=== PATIENT | male | born 1960 | race Caucasian/White ===

== ENCOUNTER → 2016-10-27 | Outpatient (CLI) | payer MEDICAID ==
[2016-10-27 07:09] LABS: ALT 34 U/L (21-72); AST 30 U/L (17-59); Alkaline Phosphatase 64 U/L (38-126); Anion Gap 10 mmol/L; Blood Urea Nitrogen 13 mg/dL (9-20); Calcium 9.5 mg/dL (8.4-10.2); Carbon Dioxide 27 mmol/L (22-30); Chloride 105 mmol/L (98-107); Cholesterol 174 mg/dL (<200); Glucose 101 mg/dL (74-99); HDL Cholesterol 46 mg/dL (40-60); Non-African American GFR(MDRD) >60 (>60 ml/min/1.73 sqM); Potassium 4.8 mmol/L (3.5-5.1); Sodium 142 mmol/L (137-145); Total Bilirubin 0.9 mg/dL (0.2-1.3); Total Protein 7.8 g/dL (6.3-8.2); Triglycerides 86 mg/dL (<150)
[2016-10-27 07:19] LABS: Basophils # (A) 0.1 k/uL (0-0.2); Basophils % (A) 1 %; CH 31.1; CHCM 34.5; Eosinophils # (A) 0.1 k/uL (0-0.7); Eosinophils % (A) 1 %; HCT 47.5 % (39.0-53.0); HDW 2.53; HGB 15.7 gm/dL (13.0-17.5); Luc # (Auto) 0.16; Luc % (Auto) 3; Lymphocytes # (A) 2.6 k/uL (1.0-4.8); Lymphocytes % (A) 41 %; MCH 29.8 pg (25.0-35.0); MCV 90.4 fL (80.0-100.0); Mean Platelet Volume 7.1; Monocytes # (A) 0.4 k/uL (0-1.0); Monocytes % (A) 6 %; Neutrophils % (A) 48 %; RBC 5.26 m/uL (4.30-5.90); RDW 12.5 % (11.5-15.5); WBC 6.3 k/uL (3.8-10.6); WBC (Perox) 6.23
[2016-10-27 12:23] LABS: Prostate Specific Antigen 0.41 ng/mL (0.00-4.00)
[2016-10-27 13:08] LABS: Hemoglobin A1C 5.3 % (4.2-6.1)
== END | disposition home or self-care (01) ==
LOC: LABWHC1 06:34
PROVIDERS: ATTEND Internal Medicine Geriatric Medicine
DX: Z00.00 Encounter for general adult medical examination without abnormal findings (principal); N40.0 Benign prostatic hyperplasia without lower urinary tract symptoms; R00.1 Bradycardia, unspecified; E78.00 Pure hypercholesterolemia, unspecified; E07.9 Disorder of thyroid, unspecified
CPT/HCPCS: 36415; 80053; 80061; 83036; 84153; 84439; 84443; 85025

== ENCOUNTER → 2016-12-16 | Outpatient (CLI) | payer MEDICAID ==
--- NOTE | 2016-12-16 21:51 | CONS ---
DATE OF CONSULTATION: 12/16/2016 CONSULTATION/NEW PATIENT EVALUATION 56-year-old gentleman who has a.m. the sleep center for obstructive sleep apnea-hypopnea syndrome. HISTORY OF PRESENT ILLNESS/SLEEP-WAKE EVALUATION: Patient had been diagnosed with obstructive sleep apnea in 2010; apnea-hypopnea index in severe range 32.5 with oxygen desaturation to 82%. Recommended CPAP pressure at that time 7 cm of water. Patient continued to use his CPAP equipment every night now for the whole night. I checked his CPAP unit. Usage is 30 out of 30 nights for more than 4 hours. Machine does not show apnea-hypopnea index. SLEEP SCHEDULE: Patient's usual sleep schedule is from 10:00 p.m. to 6 5:00 a.m. on working days and from 10:00 p.m. to 7:00 a.m. on weekends. FALLING ASLEEP: No problem with falling asleep. No TV in bedroom. DURING SLEEP: He usually sleeps on the side position able to sleep so the whole night without awakenings. No snoring with the usage of his machine according to the patient. Recently patient developed some problem with the machine. Some extra beep sounds and sometimes machine takes over. DURING THE DAY/WAKE STATE: PAST MEDICAL HISTORY: Positive for acid reflux. PAST SURGICAL HISTORY: Appendectomy. MEDICATIONS: 1. Omeprazole. 2. Baby aspirin. SOCIAL HISTORY: Negative for smoking. Alcohol consumption, occasional. FAMILY HISTORY: Heart problems, arthritis, cancer, acid reflux, thyroid problems. REVIEW OF SYSTEMS: No fevers. No double vision. No recent chest pain. No shortness of breath. No abdominal pain. No bleeding episodes. No blood in urine. No seizure episodes. PHYSICAL EXAMINATION: GENERAL: 56-year-old gentleman without distress. VITAL SIGNS: BP 137/79, HR 64, RR 18. Height 69 inches. Weight 229.6. BMI 33.3. Neck 17-1/2 inches in circumference. Temp is 98.3. Oxygen saturation at room air 97%. HEENT: Oropharynx extremely low position of soft palate. NECK: Supple. No JVD. Thyroid is not palpable. LUNGS: Clear to percussion and to auscultation. Good air exchange. No wheezing or rhonchi. HEART: S1, S2 regular. No murmurs, gallops or rubs. ABDOMEN: Obese. Soft and nontender. Bowel sounds are present. No organomegaly appreciated. EXTREMITIES: No clubbing or cyanosis. GRAIN BLENDER: Awake, alert, and oriented x3. Cranial nerves 2 to 7 intact. There is no fasciculation or atrophy noted. No focal deficits observed. IMPRESSION: 1. Obstructive sleep apnea-hypopnea syndrome by results of polysomnogram in 2010 patient is on treatment with CPAP at 7 cm of water. Demonstrated 100% compliance of treatment. Technical problems with CPAP unit. 2. Obesity; body mass index 33. 3. Acid reflux. 4. Status post appendectomy. PLAN: 1. Prescription for new CPAP unit. 2. Continue losing weight. 3. Sleep hygiene with regular time in bed for at least 8 hours. 4. No driving if feels any sleepiness. Thank you very much for allowing me to participate in the management of your patient. Sincerely, Yahir Harden MD, PhD, FAASM. Diplomat of [place] [employer], Sleep Medicine Board by [place] [employer] [place] [employer] [facility] [place]
== END ==
LOC: SLEEP 15:59
PROVIDERS: ATTEND Internal Medicine
DX: G47.33 Obstructive sleep apnea (adult) (pediatric) (principal); E66.9 Obesity, unspecified; K21.9 Gastro-esophageal reflux disease without esophagitis; Z68.33 Body mass index [BMI] 33.0-33.9, adult; Z79.82 Long term (current) use of aspirin; Z79.899 Other long term (current) drug therapy
CPT/HCPCS: 99211

== ENCOUNTER → 2017-04-04 | Outpatient (CLI) | payer MEDICAID ==
[2017-04-04 08:54] LABS: Basophils % (A) 1 %; CH 30.8; CHCM 33.4; Eosinophils # (A) 0.1 k/uL (0-0.7); Eosinophils % (A) 1 %; HCT 48.3 % (39.0-53.0); HDW 2.47; HGB 16.2 gm/dL (13.0-17.5); Luc # (Auto) 0.12; Luc % (Auto) 3; Lymphocytes # (A) 1.7 k/uL (1.0-4.8); Lymphocytes % (A) 37 %; MCH 30.9 pg (25.0-35.0); MCHC 33.4 g/dL (31.0-37.0); MCV 92.5 fL (80.0-100.0); Mean Platelet Volume 6.9; Monocytes # (A) 0.3 k/uL (0-1.0); Monocytes % (A) 5 %; Neutrophils # (A) 2.5 k/uL (1.3-7.7); Neutrophils % (A) 54 %; RBC 5.22 m/uL (4.30-5.90); RDW 12.6 % (11.5-15.5); WBC 4.6 k/uL (3.8-10.6); WBC (Perox) 4.76
[2017-04-04 09:00] LABS: ALT 39 U/L (21-72); AST 31 U/L (17-59); Alkaline Phosphatase 60 U/L (38-126); Anion Gap 8 mmol/L; Blood Urea Nitrogen 15 mg/dL (9-20); Calcium 9.6 mg/dL (8.4-10.2); Carbon Dioxide 29 mmol/L (22-30); Chloride 105 mmol/L (98-107); Cholesterol 183 mg/dL (<200); Glucose 100 mg/dL (74-99); HDL Cholesterol 56 mg/dL (40-60); Non-African American GFR(MDRD) >60 (>60 ml/min/1.73 sqM); Potassium 5.1 mmol/L (3.5-5.1); Sodium 142 mmol/L (137-145); Total Bilirubin 0.4 mg/dL (0.2-1.3); Total Protein 7.5 g/dL (6.3-8.2)
[2017-04-04 09:11] LABS: Hemoglobin A1C 5.4 % (4.2-6.1)
--- NOTE | 2017-04-04 09:51 | XR ---
EXAMINATION TYPE: XR chest 2V DATE OF EXAM: 04/04/2017 COMPARISON: NONE HISTORY: Shortness of breath TECHNIQUE: Frontal and lateral views of the chest are obtained. FINDINGS: Scattered senescent parenchymal changes noted. No evidence for infiltrate. No evidence for atelectasis. Heart size is stable. Mediastinal structures are stable and grossly unremarkable. No evidence for hilar prominence. Degenerative changes dorsal spine. IMPRESSION: 1. No evidence for acute pulmonary disease.
== END | disposition home or self-care (01) ==
LOC: LABWHC1 08:17
PROVIDERS: ATTEND Internal Medicine Geriatric Medicine
DX: R49.0 Dysphonia (principal); R05 Cough; E78.00 Pure hypercholesterolemia, unspecified; E07.9 Disorder of thyroid, unspecified; R79.9 Abnormal finding of blood chemistry, unspecified
CPT/HCPCS: 36415; 71020; 80053; 80061; 83036; 84439; 84443; 85025

== ENCOUNTER 2017-06-15 06:45 | Day surgery (SDC) | payer MEDICAID ==
[2017-06-10 11:01] VITALS: BMI 30.1
[~2017-06-15 06:45] MED LIST: DEXAMETHASONE SOD PHOSPHATE 10 MG/ML 1 ML VIAL IV ONE; DEXAMETHASONE SOD PHOSPHATE 4 MG/ML 1 ML VIAL IV ONE; FAMOTIDINE 20 MG/2 ML VIAL IV ONE; HYDROmorphone 0.5 MG/0.5 ML SYRINGE IVP PRN; LACTATED RINGERS 1,000 ML IV SCH; LIDOCAINE 1% 20 ML VIAL (10MG/ML) FOR IV START INTRADERMA PRN; MIDAZOLAM 2 MG/2 ML VIAL IV PRN; ONDANSETRON 4 MG/2 ML VIAL IVP ONE; Pre Op ABX Message 1 EACH MISC MISCELLANE ONE; SCOPOLAMINE 1.5MG/72HR PATCH TRANSDERM ONE
[2017-06-15] MEDS ORDERED: LACTATED RINGERS 1,000 ML IV ONE (07:06)
[2017-06-15] MEDS ORDERED: ROCURONIUM BROMIDE 10 MG/ML 10 ML VIAL IV ONE (07:43)
[2017-06-15] MEDS ORDERED: NEOSTIGMINE 1 MG/ML 10 ML VIAL ONE (07:43)
[2017-06-15] MEDS ORDERED: MIDAZOLAM 2 MG/2 ML VIAL ONE (07:43)
[2017-06-15] MEDS ORDERED: GLYCOPYRROLATE 0.2 MG/ML 2 ML VIAL ONE (07:43)
[2017-06-15] MEDS ORDERED: PROPOFOL 10 MG/ML 20 ML VIAL IV ONE (07:43)
[2017-06-15] MEDS ORDERED: fentaNYL (PF) 50 MCG/ML 2 ML AMP ONE (07:43)
[2017-06-15] MEDS ORDERED: LIDOCAINE 1% INJ 10MG/ML (20 ML MDV) ONE (07:43)
[2017-06-15] MEDS ORDERED: SUCCINYLCHOLINE CHLORIDE VIAL 200 MG/10 ML VIAL IV ONE (07:43)
--- NOTE | 2017-06-15 08:07 | P.PCN ---
Date of Procedure: 06/15/17 Procedure(s) Performed: BRIEF HISTORY: Patient is a 56-year-old, pleasant, white malescheduled for an upper endoscopy as a part as well as a Weaver's esophagus diagnosed a year ago. The patient has long-standing history of GERD and has been on Prilosec 20 mg twice daily. He is also scheduled for colonoscopy by Dr. Powell today as a part of evaluation of chronic hoarseness and dysphonia PROCEDURE PERFORMED: Esophagogastroduodenoscopy with biopsy. PREOPERATIVE DIAGNOSIS: Surveillance of Weaver's esophagus. Gen. anesthesia PROCEDURE: After informed consent was obtained, the patient was brought into the endoscopy unit. Gen. anesthesia was performed. Initially the Olympus GIF- 140 video endoscope was inserted into the mouth. Esophagus intubated without any difficulty. It was gradually advanced into the stomach and duodenum and carefully examined. The bulb and the second part of the duodenum appeared normal. The scope at this time was withdrawn to the stomach, adequately insufflated with air, and upon careful examination, mucosa of the antrum,had mild gastritis. The body, cardia and the fundus appeared normal. The scope was then withdrawn into the esophagus. The GE junction was located at 39 cm from the incisors.There was a 2 mm island of Weaver's appearing mucosa just proximal to the GE junction and this was biopsied. Therest of the esophagus appeared normal. There were no erosions or ulcerations seen and the patient tolerated the procedure well. IMPRESSION: 1.Short segment Weaver's esophagus status post biopsy. 2.Mild antral gastritis. RECOMMENDATIONS: The findings of this examination were discussed with the patient as well as his family. At this time will await the biopsy results. If the biopsy confirms the presence of Weaver's esophagus he can have a repeat surveillance upper endoscopy in 2-3 years.
--- NOTE | 2017-06-15 08:16 | P.OP ---
Date of Procedure: 06/15/17 Preoperative Diagnosis: Hoarseness Postoperative Diagnosis: Same Procedure(s) Performed: Direct microlaryngoscopy Anesthesia: NEREIDA Surgeon: Blue Manzanares Estimated Blood Loss (ml): 0 Pathology: none sent Condition: stable Disposition: PACU Indications for Procedure: Is a 56-year-old white male with multiple months of chronic hoarseness, patient is not able to cooperate with laryngoscopy in the office due to vasovagal and therefore direct laryngoscopy was indicated Operative Findings: Mild to moderate bilateral arytenoid erythema Description of Procedure: Patient brought in after suite and placed in a supine position. Patient underwent induction of general anesthesia with oral endotracheal intubation without difficulty. The patient was prepped and draped in usual aseptic fashion. Dr. Regan proceeded initially with EGD and was this was completed we proceeded. The patient was prepped and draped in usual aseptic fashion. A tooth guard was placed. Direct laryngoscopy was performed with systematic evaluation of the base of tongue vallecula both piriform sinuses post cricoid area and endolarynx. With the scope in suspension and the microscope was brought into position to evaluate the vocal cords. The true vocal cords themselves appeared unremarkable. There was mild to moderate arytenoid erythema bilaterally but no focal lesions otherwise. The laryngoscope and tooth guard were then removed. The patient was allowed to emerge from general anesthesia having tolerated procedure well was excised in the operating suite and transferred postoperative recovery area in satisfactory condition. Of note is that the front office agent noted an intermittent arrhythmia and although this did not affect the procedure itself was felt may benefit from cardiac consultation as an outpatient.
[2017-06-15 08:39] VITALS: RESP 16; TEMP 97.4
[2017-06-15 09:49] VITALS: BP 121/70; PULSE 65
== END 2017-06-15 10:13 | disposition home or self-care (01) ==
LOC: OR 06:45
PROVIDERS: ATTEND Otolaryngology
DX: K22.70 Barrett's esophagus without dysplasia (principal); K21.9 Gastro-esophageal reflux disease without esophagitis; K29.50 Unspecified chronic gastritis without bleeding; R49.0 Dysphonia; G47.33 Obstructive sleep apnea (adult) (pediatric); L30.9 Dermatitis, unspecified; Z79.899 Other long term (current) drug therapy; Z79.82 Long term (current) use of aspirin
CPT/HCPCS: 88305; 43239; 31526; J2250; J0330; J1100; J2710; J2405; J2001; J3010; J2704

== ENCOUNTER → 2017-07-13 | Outpatient (CLI) | payer MEDICAID ==
--- NOTE | 2017-07-13 11:46 | ECHOF ---
Referral Reason:I49.9 Cardiac arrhythmia MEASUREMENTS -------- HEIGHT: 177.8 cm WEIGHT: 99.8 kg BP: RVIDd: 4.0 cm (< 3.3) IVSd: 1.4 cm (0.6 - 1.1) LVIDd: 4.7 cm (3.9 - 5.3) LVPWd: 1.4 cm (0.6 - 1.1) IVSs: 1.4 cm LVIDs: 3.3 cm LVPWs: 1.7 cm LAESV Index (A-L): 19.22 ml/m Ao Diam: 3.7 cm (2.0 - 3.7) AV Cusp: 2.4 cm (1.5 - 2.6) LA Diam: 3.2 cm (2.7 - 3.8) EPSS: 0.4 cm MV E Rob: 0.63 m/s MV DecT: 327 ms MV A Rob: 0.70 m/s MV E/A Ratio: 0.91 RAP: 5.00 mmHg RVSP: 8.19 mmHg MV EF SLOPE: 57.12 mm/s (70 - 150) MV EXCURSION: 2.05 cm (> 18.000) FINDINGS -------- Sinus rhythm. This was a technically adequate study. The left ventricular size is normal. There is mild concentric left ventricular hypertrophy. Overa ll left ventricular systolic function is normal with, an EF between 55 - 60 %. The right ventricle is normal in size and function. Normal LA size by volume 22+/-6 ml/m2. The right atrium is normal in size. Aortic valve is trileaflet and is mildly thickened. There is no evidence of aortic regurgitation. There is no evidence of aortic stenosis. The mitral valve leaflets are mildly thickened. There is trace mitral regurgitation. Trace tricuspid regurgitation present. Right ventricular systolic pressure is normal at < 35 mmHg. There is no evidence of pulmonary hypertension. Trace/mild (physiologic) pulmonic regurgitation. The aortic root size is normal. Normal inferior vena cava with normal inspiratory collapse consistent with estimated right atrial pre ssure of 5 mmHg. The pericardium is normal. There is no pericardial effusion. CONCLUSIONS -------- 1. Sinus rhythm. 2. This was a technically adequate study. 3. The left ventricular size is normal. 4. There is mild concentric left ventricular hypertrophy. 5. Overall left ventricular systolic function is normal with, an EF between 55 - 60 %. 6. Normal LA size by volume 22+/-6 ml/m2. 7. Aortic valve is trileaflet and is mildly thickened. 8. The mitral valve leaflets are mildly thickened. 9. There is trace mitral regurgitation. 10. Trace tricuspid regurgitation present. 11. Right ventricular systolic pressure is normal at < 35 mmHg. 12. There is no evidence of pulmonary hypertension. 13. Trace/mild (physiologic) pulmonic regurgitation. 14. The aortic root size is normal. 15. There is no pericardial effusion. IMPROVEMENT SPEC: Tayo Acevedo RDCS
--- NOTE | 2017-07-14 11:16 | ECHOS ---
STRESS ECHOCARDIOGRAM INDICATIONS: Cardiac arrhythmia. MEDICATIONS: Omeprazole, aspirin. BASELINE HEART RATE: 77 BASELINE BLOOD PRESSURE: 105/62 MAXIMUM HEART RATE: 145 MAXIMUM BLOOD PRESSURE: 168/93 85% MPHR: 139 100% MPHR: 163 METS: 11.7 MAXIMUM STAGE REACHED: 4 TOTAL EXERCISE TIME: 10:00 CLINICAL INFORMATION: Baseline EKG shows sinus rhythm, normal axis, normal intervals. Patient exercised on Landon protocol for a total of 10 minutes. achieving 11 METS. 89% of predicted maximal heart rate without chest pain or diagnostic ST-segment depression. Baseline echo shows normal left ventricular size, wall motion and systolic function. Postexercise there is normal hyperdynamic response of all segments of myocardium noted. CONCLUSION: 1. Excellent exercise tolerance. 2. Negative stress test by EKG criteria. 3. Negative stress echo. MMODL / IJN: [id number] /
== END | disposition home or self-care (01) ==
LOC: RADNMMAIN 09:48
PROVIDERS: ATTEND Internal Medicine Interventional Cardiology
DX: I35.8 Other nonrheumatic aortic valve disorders (principal); I51.7 Cardiomegaly
CPT/HCPCS: 93017; 93225; 93226; 93306; 93350

== ENCOUNTER 2017-10-01 17:50 | Emergency (ER) | payer MEDICAID ==
[2017-10-01 17:57] VITALS: RESP 16; TEMP 98.5
[2017-10-01] MEDS ORDERED: SODIUM CHLORIDE 0.9% 500 ML IV STA (18:14)
--- NOTE | 2017-10-01 18:32 | ED ---
Nausea/Vomiting/Diarrhea HPI - General Chief complaint: Nausea/Vomiting/Diarrhea Stated complaint: Flu Time Seen by Provider: 10/01/17 18:04 Source: EMS Mode of arrival: EMS Limitations: no limitations - History of Present Illness Initial comments: This is a 57-year-old male with a history of vasovagal syncope who presents emergency department for multiple episodes of syncope. The patient states that he has been ill all day and has been vomiting frequently. Every time he vomits he has a syncopal episode. This has happened to him multiple times in the past and is known to be vasovagal in nature. The reason he came to the emergency department because he tried 8 mg of oral Zofran without any resolution of his vomiting and he was concerned because he kept passing out. His brought him in for further evaluation. Patient denies any chest pain. He recently had a full cardiac workup for a colonoscopy which was normal. Denies any diarrhea. No blood in the vomit. No other acute complaints. - Related Data Home Medications Medication Instructions Recorded Confirmed Aspirin 81 mg PO DAILY 06/02/16 10/01/17 Omeprazole [PriLOSEC] 20 mg PO AC-BID 06/02/16 10/01/17 Previous Rx's Medication Instructions Recorded Metoclopramide HCl [Reglan] 10 mg PO TID PRN #10 tablet 10/01/17 Allergies Allergy/AdvReac Type Severity Reaction Status Date / Time No Known Allergies Allergy Verified 10/01/17 18:11 Review of Systems ROS Statement: Those systems with pertinent positive or pertinent negative responses have been documented in the HPI. ROS Other: All systems not noted in ROS Statement are negative. Past Medical History Past Medical History: GERD/Reflux Additional Past Medical History / Comment(s): USES C PAP MACHINE History of Any Multi-Drug Resistant Organisms: None Reported Past Surgical History: Appendectomy, Tonsillectomy Past Anesthesia/Blood Transfusion Reactions: No Reported Reaction Past Psychological History: No Psychological Hx Reported Smoking Status: Never smoker Past Alcohol Use History: Occasional Past Drug Use History: None Reported - Past Family History Brother(s) Family Medical History: Cancer Additional Family Medical History / Comment(s): BRAIN CANCER Sister(s) Family Medical History: Cancer Additional Family Medical History / Comment(s): BREAST CANCER General Exam - General Exam Comments Initial Comments: Constitutional: Awake alert Appears comfortable Head: Normocephalic atraumatic Eyes: no conjunctival injection No scleral icterus EOMI Neck: No JVD Supple Heart: Regular rate rhythm normal S1-S2 no murmurs Lungs: Clear to auscultation bilaterally No wheezing No rales Abdomen: Soft nondistended nontender Extremities: Non edematous DP pulses intact Radial pulses intact Neuro: A&Ox3 No focal neurologic deficits Psych: Appropriate mood and affect Limitations: no limitations Course Vital Signs 10/01/17 10/01/17 17:52 18:56 Temperature 98.5 F Pulse Rate 82 85 Respiratory 16 16 Rate Blood Pressure 128/73 101/60 O2 Sat by Pulse 97 96 Oximetry - Reevaluation(s) Reevaluation #1: 10/01/17 18:31 EKG showing normal sinus rhythm with a rate of 91. No abnormal ST 7 changes or T-wave inversion. QTC is 4:30. Other intervals normal. No ectopy. Medical Decision Making - Medical Decision Making Is a 57-year-old male came in for nausea vomiting and syncope. The patient is a well-known history of vasovagal syncope from nausea and vomiting. He was given Reglan, Benadryl, and IV fluids with much improvement in his symptoms. EKG was unremarkable. Labs unremarkable. Patient will be discharged home with Reglan since Zofran did not help at home. Can return if he has worsening or recurring symptoms. All questions were answered. - Lab Data Result diagrams: 10/01/17 18:23 10/01/17 18:23 Lab Results 10/01/17 10/01/17 Range/Units 18:23 18:23 WBC 10.7 H (3.8-10.6) k/uL RBC 4.87 (4.30-5.90) m/uL Hgb 14.6 (13.0-17.5) gm/dL Hct 41.6 (39.0-53.0) % MCV 85.5 (80.0-100.0) fL MCH 30.0 (25.0-35.0) pg MCHC 35.1 (31.0-37.0) g/dL RDW 12.1 (11.5-15.5) % Plt Count 288 (150-450) k/uL Neutrophils % 93 % Lymphocytes % 3 % Monocytes % 3 % Eosinophils % 1 % Basophils % 0 % Neutrophils # 10.0 H (1.3-7.7) k/uL Lymphocytes # 0.4 L (1.0-4.8) k/uL Monocytes # 0.3 (0-1.0) k/uL Eosinophils # 0.1 (0-0.7) k/uL Basophils # 0.0 (0-0.2) k/uL Sodium 138 (137-145) mmol/L Potassium 4.5 (3.5-5.1) mmol/L Chloride 102 (98-107) mmol/L Carbon Dioxide 22 (22-30) mmol/L Anion Gap 14 mmol/L BUN 20 (9-20) mg/dL Creatinine 0.90 (0.66-1.25) mg/dL Est GFR (CKD-EPI)AfAm >90 (>60 ml/min/1.73 sqM) Est GFR (CKD-EPI)NonAf >90 (>60 ml/min/1.73 sqM) Glucose 117 H (74-99) mg/dL Calcium 8.7 (8.4-10.2) mg/dL Total Bilirubin 0.8 (0.2-1.3) mg/dL AST 27 (17-59) U/L ALT 22 (21-72) U/L Alkaline Phosphatase 56 (38-126) U/L Total Protein 6.6 (6.3-8.2) g/dL Albumin 3.9 (3.5-5.0) g/dL Disposition Clinical Impression: Nausea & vomiting, Vasovagal syncope Disposition: HOME SELF-CARE Condition: Stable Instructions: Syncope (ED), Acute Nausea and Vomiting (ED) Prescriptions: Metoclopramide HCl [Reglan] 10 mg PO TID PRN #10 tablet PRN Reason: Nausea Referrals: Srini Preston MD [Primary Care Provider] - 1-2 days
[2017-10-01 18:40] LABS: Basophils % (A) 0 %; Eosinophils # (A) 0.1 k/uL (0-0.7); Eosinophils % (A) 1 %; HCT 41.6 % (39.0-53.0); HGB 14.6 gm/dL (13.0-17.5); Lymphocytes # (A) 0.4 k/uL (1.0-4.8); Lymphocytes % (A) 3 %; MCHC 35.1 g/dL (31.0-37.0); MCV 85.5 fL (80.0-100.0); Mean Platelet Volume 7.1; Monocytes # (A) 0.3 k/uL (0-1.0); Monocytes % (A) 3 %; Neutrophils % (A) 93 %; Platelet Count 288 k/uL (150-450); RBC 4.87 m/uL (4.30-5.90); RDW 12.1 % (11.5-15.5); WBC 10.7 k/uL (3.8-10.6)
[2017-10-01 18:55] LABS: ALT 22 U/L (21-72); AST 27 U/L (17-59); Albumin 3.9 g/dL (3.5-5.0); Alkaline Phosphatase 56 U/L (38-126); Anion Gap 14 mmol/L; Blood Urea Nitrogen 20 mg/dL (9-20); Calcium 8.7 mg/dL (8.4-10.2); Carbon Dioxide 22 mmol/L (22-30); Chloride 102 mmol/L (98-107); Glucose 117 mg/dL (74-99); Potassium 4.5 mmol/L (3.5-5.1); Sodium 138 mmol/L (137-145); Total Bilirubin 0.8 mg/dL (0.2-1.3); Total Protein 6.6 g/dL (6.3-8.2)
[2017-10-01 18:57] VITALS: BP 101/60; PULSE 85
[2017-10-01] MEDS ORDERED: diphenhydrAMINE 50 MG/ML 1 ML VIAL IVP STA (18:59)
[2017-10-01] MEDS ORDERED: METOCLOPRAMIDE 5 MG/ML 2 ML VIAL IVP STA (18:59)
== END 2017-10-01 19:58 | disposition home or self-care (01) ==
LOC: EC 17:50
DX: R55 Syncope and collapse (principal); R11.2 Nausea with vomiting, unspecified; K21.9 Gastro-esophageal reflux disease without esophagitis; Z99.89 Dependence on other enabling machines and devices; Z79.82 Long term (current) use of aspirin; Z79.899 Other long term (current) drug therapy
CPT/HCPCS: 36415; 93005; 80053; 85025; 99284; 96374; 96375; 96361; J1200; J2765

== ENCOUNTER → 2018-01-31 | Outpatient (CLI) | payer MEDICAID ==
--- NOTE | 2018-01-31 20:29 | CONS ---
CONSULTATION REASON FOR CONSULTATION: Sleep apnea. Srini is 57, with a known history of obstructive sleep apnea, severe with an AHI of 32.5 that was established back in 2009. He had updated CPAP machine approximately 2 years ago and currently has ResMed Air Sense Ultracet, which is set at a pressure of 7 cm of water. He is very happy with the CPAP. He is using a Neal FX medium size nose pillow. He has been averaging around 7.3 hours of CPAP use. Based on the compliance data. His CPAP use for more than 4 hours is 29/30 and his leak factor 31 L/minute. His AHI is down to 0.3 while on treatment. Denies snoring. Denies insomnia. Denies nocturia. Denies gasping for air. Denies choking. Denies grinding. Denies sleep walking. He goes to bed around 10:00 p.m., wakes up at 5:00 a.m. in the morning. He feels refreshed. Does not fall asleep while driving his car. Garland score is at 5. Weight has been stable over the past 2 years. PAST MEDICAL HISTORY: Obstructive sleep apnea. PAST SURGICAL HISTORY: Appendectomy. DRUG ALLERGIES: Not known. OUTPATIENT MEDICATION: Carafate and omeprazole. SOCIAL HISTORY: The patient is a nonsmoker. No history of alcohol. No history of IV drugs. FAMILY HISTORY: Negative for sleep apnea. REVIEW OF SYSTEMS: 12-point review of system was done. Positive findings are mentioned above history of present illness. Otherwise negative. PHYSICAL EXAMINATION: BP is 119/73, pulse 67, respirations 16, temperature 97.6, saturation 96% on room air. Weight is 229. Height is 5 feet 9 inches. Neck size is 17-1/2 inches, BMI 33.8, Garland score is 5. GENERAL APPEARANCE: Calm, comfortable. HEAD: Atraumatic normocephalic. NECK: Supple. There is no JVD. No goiter or neck masses. Mallampati class IV. LUNGS: Clear to auscultation. HEART: Sounds regular rate and rhythm. Normal S1, S2. No S3. No murmurs. ABDOMEN: Soft, nontender. No organomegaly. EXTREMITIES: No edema. No cyanosis or clubbing. IMPRESSION: Obstructive sleep apnea severe with an AHI of 32.5 currently on CPAP pressure of 7 with excellent clinical response and compliance. PLAN: 1. Maintain the current body weight. 2. Continue CPAP use at same level of pressure. 3. Change the mask interface to an AirFit P 10 medium size to which the patient was fitted today. 4. See me back in a few year's time and follow up earlier if needed. NIR / IMELDAN: [id number] /
== END | disposition home or self-care (01) ==
LOC: SLEEP 16:24
PROVIDERS: ATTEND Internal Medicine Critical Care Medicine
DX: G47.33 Obstructive sleep apnea (adult) (pediatric) (principal); Z79.899 Other long term (current) drug therapy; Z99.89 Dependence on other enabling machines and devices
CPT/HCPCS: 99211

== ENCOUNTER 2018-10-11 07:12 | Day surgery (SDC) | payer MEDICAID ==
[~2018-10-11 07:12] MED LIST changes: -MIDAZOLAM 2 MG/2 ML VIAL IV PRN; -Pre Op ABX Message 1 EACH MISC MISCELLANE ONE
[2018-10-11] MEDS ORDERED: MIDAZOLAM 2 MG/2 ML VIAL ONE (09:01)
[2018-10-11] MEDS ORDERED: ROCURONIUM BROMIDE 10 MG/ML 10 ML VIAL IV ONE (09:01)
[2018-10-11] MEDS ORDERED: SUCCINYLCHOLINE CHLORIDE VIAL 200 MG/10 ML VIAL IV ONE (09:01)
[2018-10-11] MEDS ORDERED: GLYCOPYRROLATE 0.2 MG/ML 2 ML VIAL ONE (09:01)
[2018-10-11] MEDS ORDERED: NEOSTIGMINE 1 MG/ML 10 ML VIAL ONE (09:01)
[2018-10-11] MEDS ORDERED: fentaNYL (PF) 50 MCG/ML 2 ML AMP ONE (09:01)
[2018-10-11] MEDS ORDERED: PROPOFOL 10 MG/ML 20 ML VIAL IV ONE (09:01)
[2018-10-11] MEDS ORDERED: LIDOCAINE 1% INJ 10MG/ML (20 ML MDV) ONE (09:01)
--- NOTE | 2018-10-11 09:43 | P.PCN ---
Date of Procedure: 10/11/18 Procedure(s) Performed: Brief history: Patient is a pleasant 58-year-old white male, scheduled for an elective upper endoscopy as well as colonoscopy as a part of evaluation of long-standing history of GERD/surveillance of Weaver's esophagus and screening for colon neoplasia Procedure performed: Esophagogastroduodenoscopy with biopsy Colonoscopy Preoperative diagnosis: GERD/Weaver's esophagus Screening for colon cancer Anesthesia: MAC Procedure: After informed consent was obtained from the patient was brought into the endoscopy unit and IV sedation was administered by anesthesia under continuous monitoring. Initially upper endoscopy was done. The Olympus GF 160 video endoscope was inserted inserted into the mouth and esophagus intubated without any difficulty and was gradually advanced into the stomach and duodenum and carefully examined. The bulb and second part of the duodenum appeared normal. The scope was then withdrawn into the stomach adequately insufflated with air and upon careful examination the antrum had mild gastritis and biopsies were done from this area. The body, cardia and fundus appeared normal. The scope was then withdrawn into the esophagus. The GE junction was located at 40 cm to the incisors. It appeared regular with no erythema erosions or ulcerations. There was a 2 mm island of Weaver's appearing mucosa just proximal to the GE junction and this was biopsied. Rest of the esophagus appeared normal. Patient tolerated the procedure well. At this time the patient continued to remain sedation. Initial digital rectal examination was normal. Olympus CF 160 video colonoscope was then inserted into the rectum and gradually advanced to the cecum without any difficulty. Careful examination was performed as the scope was gradually being withdrawn. The prep was excellent. The cecum, ascending colon, transverse colon, descending colon, sigmoid colon and rectum appeared normal. Retroflexion was performed in the rectum and small internal hemorrhoids were noted. Patient tolerated the procedure well. Impression: 1. Upper endoscopy revealed short segment Weaver's esophagus and mild gastritis 2. Colonoscopy revealed small internal hemorrhoids but no evidence of colitis or colorectal neoplasia Recommendations: Findings of this examination were discussed with the patient as well as his family. He was advised to follow with the biopsy results. If the biopsy does not show any evidence of dysplasia, he can have a repeat upper endoscopy in 3 years. He can have a repeat screening colonoscopy in 10 years
--- NOTE | 2018-10-11 10:01 | P.OP ---
Date of Procedure: 10/11/18 Preoperative Diagnosis: Hoarseness Postoperative Diagnosis: Same, chronic laryngitis Procedure(s) Performed: Microlaryngoscopy Anesthesia: NEREIDA Surgeon: Blue Manzanares Estimated Blood Loss (ml): 0 Condition: stable Disposition: PACU Indications for Procedure: Is a 58-year-old white male whose had difficulties with intermittent hoarseness. He is unable to have examination in the office including flexible laryngoscopy propensity for vasovagal side effect Operative Findings: Mild erythema of the bilateral arytenoid cartilages and slight edema of the bilateral true vocal cords Description of Procedure: The patient was brought in the operative suite and placed in a supine position. The patient underwent induction of general anesthesia with oral endotracheal intubation without difficulty. The patient EGD and colonoscopy by Dr. Regan initially and then the patient was turned over to our care. A tooth guard was placed and direct laryngoscopy was performed with systematic evaluation of the base of tongue vallecula both piriform sinuses post cricoid area and endolarynx. With the larynx in good visualization the laryngoscope was placed in suspension and the microscope was brought into position. The above findings were noted. No focal lesions otherwise were noted and therefore is did not require biopsies. The patient's voice was better today only minimally coarse today in comparison to previous in the office. The laryngoscope was then removed as well as tooth guard. The patient was allowed to emerge from general anesthesia having tolerated procedure well was excised in the operating suite and transferred to the postop recovery area in satisfactory condition.
[2018-10-11 10:16] VITALS: TEMP 97.1
[2018-10-11 10:53] VITALS: RESP 16
[2018-10-11 11:35] VITALS: BP 141/83; PULSE 77
== END 2018-10-11 11:39 | disposition home or self-care (01) ==
LOC: OR 07:12
PROVIDERS: ATTEND Otolaryngology
DX: Z12.11 Encounter for screening for malignant neoplasm of colon (principal); J37.0 Chronic laryngitis; K31.9 Disease of stomach and duodenum, unspecified; K29.70 Gastritis, unspecified, without bleeding; K22.70 Barrett's esophagus without dysplasia; K21.0 Gastro-esophageal reflux disease with esophagitis; G47.33 Obstructive sleep apnea (adult) (pediatric); Z79.899 Other long term (current) drug therapy; K64.8 Other hemorrhoids; L30.9 Dermatitis, unspecified; Z79.82 Long term (current) use of aspirin; Z79.891 Long term (current) use of opiate analgesic; Z80.3 Family history of malignant neoplasm of breast; Z80.8 Family history of malignant neoplasm of other organs or systems
CPT/HCPCS: 31526; 88305; 43239; J2250; J0330; J1100; J2710; J2405; J2001; J3010; J2704; G0121; 45380

== ENCOUNTER → 2019-05-16 | Outpatient (CLI) | payer MEDICAID ==
[2019-05-16 07:43] LABS: Basophils # (A) 0.1 k/uL (0-0.2); Basophils % (A) 1 %; Eosinophils # (A) 0.1 k/uL (0-0.7); Eosinophils % (A) 1 %; HCT 47.2 % (39.0-53.0); Lymphocytes # (A) 2.2 k/uL (1.0-4.8); Lymphocytes % (A) 30 %; MCH 30.2 pg (25.0-35.0); MCV 88.8 fL (80.0-100.0); Mean Platelet Volume 6.1; Monocytes # (A) 0.4 k/uL (0-1.0); Monocytes % (A) 5 %; Neutrophils # (A) 4.4 k/uL (1.3-7.7); Neutrophils % (A) 61 %; Platelet Count 425 k/uL (150-450); RBC 5.31 m/uL (4.30-5.90); RDW 11.9 % (11.5-15.5); WBC 7.3 k/uL (3.8-10.6)
[2019-05-16 11:42] LABS: African American GFR (CKD) 84.7 (60.0-200.0); Albumin 4.8 g/dL (3.80-4.90); Albumin/Globulin Ratio 2.18 (1.60-3.17); Anion Gap 7.8 mmol/L (4.00-12.00); BUN/Creat Ratio 12.73 Ratio (12.00-20.00); Calcium 9.6 mg/dL (8.7-10.3); Carbon Dioxide 30.2 mmol/L (21.6-31.8); Chol/HDL Ratio 3.76; Globulin 2.2 g/dL (1.6-3.3); LDL Cholesterol,Calculated 112.2 mg/dL (0.0-131.0); Potassium 4.6 mmol/L (3.5-5.5); Total Bilirubin 0.4 mg/dL (0.3-1.2); VLDL Calculation 22.8 mg/dL (5.00-40.00)
[2019-05-16 11:56] LABS: T4, Free (Free Thyroxine) 0.9 ng/dL (0.80-1.80)
[2019-05-16 12:57] LABS: Hemoglobin A1C 5.2 % (4.0-6.0)
== END | disposition home or self-care (01) ==
LOC: LABWHC1 07:06
PROVIDERS: ATTEND Nurse Practitioner Family
DX: N40.0 Benign prostatic hyperplasia without lower urinary tract symptoms (principal); E55.9 Vitamin D deficiency, unspecified; R73.9 Hyperglycemia, unspecified
CPT/HCPCS: 84439; 80061; 80053; 84443; 85025; 82306; 83036; 36415; G0103

== ENCOUNTER → 2019-07-12 | Outpatient (CLI) | payer MEDICAID ==
--- NOTE | 2019-07-12 11:20 | XR ---
EXAMINATION TYPE: XR cervical spine comp DATE OF EXAM: 07/12/2019 COMPARISON: NONE HISTORY: Left-sided neck pain TECHNIQUE: Four views are submitted. FINDINGS: The odontoid is intact. There are no compression deformities. The prevertebral soft tissue structur es are within normal limits. Multilevel hypertrophic and degenerative changes. Severe degenerative d isc disease C6-C7. Multilevel facet arthropathy. Multilevel foraminal encroachment with most marked f indings at C6-C7. IMPRESSION: 1. Multilevel moderate to severe degenerative disc disease with facet arthropathy and multilevel fora dinah encroachment. Recommend follow-up MRI..
== END | disposition home or self-care (01) ==
LOC: RADXRMAIN 10:49
PROVIDERS: ATTEND Internal Medicine Geriatric Medicine
DX: M50.30 Other cervical disc degeneration, unspecified cervical region (principal); M46.92 Unspecified inflammatory spondylopathy, cervical region
CPT/HCPCS: 72050

== ENCOUNTER → 2020-08-07 | Outpatient (CLI) | payer MEDICAID ==
[2020-08-07 11:17] LABS: Basophils # (A) 0.05 X 10*3/uL (0.00-0.10); Basophils % (A) 0.7 %; Eosinophils # (A) 0.09 X 10*3/uL (0.04-0.35); Eosinophils % (A) 1.2 %; HCT 48.8 % (39.6-50.0); HGB 16.5 g/dL (13.0-17.0); Lymphocytes % (A) 33.2 %; MCH 30.2 pg (27.0-32.0); MCHC 33.8 g/dL (32.0-37.0); MCV 89.2 fL (80.0-97.0); Mean Platelet Volume 9.7 fL (9.5-12.2); Neutrophils # (A) 4.27 X 10*3/uL (1.80-7.70); Neutrophils % (A) 56.6 %; Platelet Count 381 X 10*3/uL (140-440); RBC 5.47 X 10*6/uL (4.40-5.60); RDW 11.7 % (11.5-14.5); WBC 7.53 X 10*3/uL (4.50-10.00)
[2020-08-07 12:32] LABS: African American GFR (CKD) 84.1 (60.0-200.0); Albumin 5.1 g/dL (3.80-4.90); Albumin/Globulin Ratio 2.43 (1.60-3.17); Anion Gap 10.6 mmol/L (4.00-12.00); BUN/Creat Ratio 12.73 Ratio (12.00-20.00); Carbon Dioxide 28.4 mmol/L (21.6-31.8); Chol/HDL Ratio 4.38; Globulin 2.1 g/dL (1.6-3.3); LDL Cholesterol,Calculated 117.4 mg/dL (0.0-131.0); Non-African American GFR(CKD) 72.6 (60.0-200.0); Potassium 4.3 mmol/L (3.5-5.5); Total Bilirubin 0.5 mg/dL (0.2-1.2); Total Protein 7.2 g/dL (6.2-8.2); VLDL Calculation 41.6 mg/dL (5.00-40.00)
[2020-08-07 12:41] LABS: Prostate Specific Antigen 0.4 ng/mL (0.0-4.5)
[2020-08-07 15:00] LABS: Hemoglobin A1C 5.3 % (4.0-6.0)
== END | disposition home or self-care (01) ==
LOC: LABWHC1 07:03
PROVIDERS: ATTEND Internal Medicine Geriatric Medicine
DX: Z00.00 Encounter for general adult medical examination without abnormal findings (principal); E07.9 Disorder of thyroid, unspecified; E78.2 Mixed hyperlipidemia; E55.9 Vitamin D deficiency, unspecified; N40.0 Benign prostatic hyperplasia without lower urinary tract symptoms
CPT/HCPCS: 36415; 80053; 80061; 82306; 83036; 84153; 84443; 85025

== ENCOUNTER → 2020-09-26 | Outpatient (CLI) | payer MEDICAID ==
--- NOTE | 2020-09-26 11:04 | P.STRESS ---
- Stress Test Note Stress Test Results/Findings: Exam Performed: stress echo exercise Exam Date: 09/26/20 Reason for Exam: CP Height: 5 ft 11 in Weight: 235 kg Protocol: SANDOR Stage: 4 Duration of Exercise: 9:35 Resting Heart Rate: 71 Resting Blood Pressure: 124/64 Maximum Achieved Heart Rate: 162 Maximum Achieved Blood Pressure: 237/84 85% PMHR: 135 100% PMHR: 159 METS: 11.9 Technologist Comment: Stress Test Results/Findings: This is a 60-year-old gentleman with history of ischemic heart disease in the family being evaluated for chest pain. Stress data: Baseline EKG showed sinus rhythm with normal ND interval and QRS duration. Blood pressure at rest is 124/64, pulse rate of 71. Patient walked on the Sandor protocol for 11 minutes achieving a maximum heart rate of 162 with blood pressure 214/78. EKGs taken during and after exercise showed some J-point depression with upsloping ST segments which are not suggestive of ischemia. Patient did not experience any chest pain. Echo data: Baseline echo images show normal wall motion and thickening. Exercise echo images showed augmentation of wall motion and thickening in all segments. Final impression: #1. Negative stress test #2. Negative stress echo
== END | disposition home or self-care (01) ==
LOC: RADNMMAIN 08:52
PROVIDERS: ATTEND Internal Medicine Geriatric Medicine
DX: R07.9 Chest pain, unspecified (principal)
CPT/HCPCS: 93351

== ENCOUNTER → 2021-09-04 | Outpatient (CLI) | payer MEDICAID ==
[2021-09-04 11:16] LABS: Basophils # (A) 0.06 X 10*3/uL (0.00-0.10); Basophils % (A) 0.8 %; Eosinophils # (A) 0.14 X 10*3/uL (0.04-0.35); Eosinophils % (A) 1.8 %; HCT 46.7 % (39.6-50.0); HGB 15.4 g/dL (13.0-17.0); Immature Grans, Automated 0.4 %; Lymphocytes % (A) 31.4 %; MCH 29.8 pg (27.0-32.0); MCV 90.5 fL (80.0-97.0); Mean Platelet Volume 9.7 fL (9.5-12.2); Monocytes # (A) 0.69 X 10*3/uL (0.20-1.00); Monocytes % (A) 8.7 %; NRBC Per 100 WBC 0 /100 WBCS (0.0-0.0); Neutrophils # (A) 4.54 X 10*3/uL (1.80-7.70); Neutrophils % (A) 56.9 %; Platelet Count 374 X 10*3/uL (140-440); RBC 5.16 X 10*6/uL (4.40-5.60); WBC 7.96 X 10*3/uL (4.50-10.00)
[2021-09-04 11:43] LABS: ALT 19 U/L (10-49); AST 24 U/L (14-35); African American GFR (CKD) 93.2 (60.0-200.0); Albumin 4.5 g/dL (3.8-4.9); Albumin/Globulin Ratio 1.73 (1.60-3.17); Alkaline Phosphatase 69 U/L (41-126); BUN/Creat Ratio 16.82 Ratio (12.00-20.00); Blood Urea Nitrogen 16.8 mg/dL (9.0-27.0); Calcium 9.5 mg/dL (8.7-10.3); Carbon Dioxide 24.2 mmol/L (20.0-27.5); Chloride 100 mmol/L (96-109); Chol/HDL Ratio 4.46 Ratio; Globulin 2.6 g/dL (1.6-3.3); Glucose 88 mg/dL (70-110); LDL Cholesterol,Calculated 100.1 mg/dL (0.0-131.0); Non-African American GFR(CKD) 80.4 (60.0-200.0); Potassium 4.3 mmol/L (3.5-5.5); Sodium 140 mmol/L (135-145); Total Protein 7.2 g/dL (6.2-8.2)
== END | disposition home or self-care (01) ==
LOC: LABWHC1 07:05
PROVIDERS: ATTEND Nurse Practitioner Family
DX: E78.2 Mixed hyperlipidemia (principal); R79.9 Abnormal finding of blood chemistry, unspecified; N40.0 Benign prostatic hyperplasia without lower urinary tract symptoms; E07.9 Disorder of thyroid, unspecified; E55.9 Vitamin D deficiency, unspecified
CPT/HCPCS: 36415; 80053; 80061; 82306; 83036; 84153; 84443; 85025

== ENCOUNTER → 2023-06-06 | Outpatient (CLI) | payer MEDICAID ==
[2023-06-06 15:48] LABS: Carbon Dioxide 27.5 mmol/L (21.6-31.8); Chloride 103 mmol/L (96-109); Potassium 4.2 mmol/L (3.5-5.5); Sodium 141 mmol/L (135-145)
[2023-06-06 16:27] LABS: HCT 46.1 % (39.6-50.0); HGB 15.7 g/dL (13.0-17.0); MCH 30.5 pg (27.0-32.0); MCHC 34.1 g/dL (32.0-37.0); MCV 89.5 FL (80.0-97.0); Mean Platelet Volume 9.9 FL (9.5-12.2); NRBC Per 100 WBC 0 X 10*3/uL (0.00-0.01); Platelet Count 333 X 10*3/uL (140-440); RBC 5.15 X 10*6/uL (4.40-5.60); RDW 11.6 % (11.5-14.5); WBC 7.45 X 10*3/uL (4.50-10.00)
== END | disposition home or self-care (01) ==
LOC: LABPAT 10:42
PROVIDERS: ATTEND Internal Medicine Interventional Cardiology
DX: Z01.812 Encounter for preprocedural laboratory examination (principal); I25.10 Atherosclerotic heart disease of native coronary artery without angina pectoris
CPT/HCPCS: 80051; 82565; 85027

== ENCOUNTER → 2023-06-09 | Day surgery (SDC) | payer MEDICAID ==
[~2023-06-09] MED LIST changes: +ALPRAZolam 0.25 MG TAB PO PRN; +ALPRAZolam 0.5 MG TAB PO PRN; +ASPIRIN 325 MG TAB PO STA; -DEXAMETHASONE SOD PHOSPHATE 10 MG/ML 1 ML VIAL IV ONE; -DEXAMETHASONE SOD PHOSPHATE 4 MG/ML 1 ML VIAL IV ONE; -FAMOTIDINE 20 MG/2 ML VIAL IV ONE; +HEPARIN SODIUM 1,000 UN/ML (10ML VL) IV ONE; +HEPARIN SODIUM 1,000 UN/ML (10ML VL) ONE; +HYDROmorphone 0.5 MG/0.5 ML SYRINGE IVP ONE; -HYDROmorphone 0.5 MG/0.5 ML SYRINGE IVP PRN; +IOPAMIDOL-370 100ML BTL INJ ONE; -LACTATED RINGERS 1,000 ML IV SCH; -LIDOCAINE 1% 20 ML VIAL (10MG/ML) FOR IV START INTRADERMA PRN; +LIDOCAINE 1% INJ 10MG/ML (5 ML VIAL-PF) SQ ONE; +MIDAZOLAM 2 MG/2 ML VIAL IVP ONE; +NITROGLYCERIN SL TABS 0.4 MG TAB SUBLINGUAL ONE; +NITROGLYCERIN SL TABS 0.4 MG TAB SUBLINGUAL PRN; -ONDANSETRON 4 MG/2 ML VIAL IVP ONE; +RX INFO: IV CONTRAST WAS GIVEN 1 EACH MISC MISCELLANE PRN; -SCOPOLAMINE 1.5MG/72HR PATCH TRANSDERM ONE; +SODIUM CHLORIDE 0.9% 1,000 ML IV SCH; +SODIUM CHLORIDE 0.9% 1,000 ML in EMPTY BAG 1 BAG IV SCH; +VERAPAMIL 2.5 MG/ML 2 ML AMP ONE; +VERAPAMIL SYRINGE (5 MG/10 ML) INTRAARTER ONE; +fentaNYL (PF) 50 MCG/ML 2 ML AMP ONE
[2023-06-09] MEDS: fentaNYL (PF) 50 MCG/ML 2 ML AMP IVP ONE ×2 (09:39→09:48)
--- NOTE | 2023-06-09 10:17 | P.PCN ---
Date of Procedure: 06/09/23 Operative Findings: CARDIAC CATHETERIZATION PERFORMING PHYSICIAN: Popeye Davey MD, RPVI PROCEDURE PERFORMED: 1. Selective right and left coronary angiogram 2. Left heart catheterization 3. Ultrasound-guided access of the right radial artery INDICATION: This is a 62-year-old gentleman who underwent recently coronary CTA and that showed critical disease involving the left anterior descending artery. COMPLICATION: None APPROACH: Right radial artery LEVEL OF SEDATION: Moderate with a sedation length of 20 minutes PROCEDURE DESCRIPTION: After obtaining an informed consent, the patient was brought to cardiac labor arbitrator. Local anesthesia was performed using lidocaine subcutaneously. The right radial artery was cannulated using Seldinger technique, the guidewire passed easily, following that we advanced a 5-Malaysian sheath dilator assembly, the wire and dilator were removed and sheath was flushed. Following that, 2 mg of verapamil along with 5000 unit heparin were given. Selective right and left coronary angiogram using a 6-Malaysian JR4 and JL 3.5 catheters. Following that we did left heart catheterization using 6-Malaysian pigtail catheter. The procedure was completed there was no complication. SELECTIVE CORONARY ANGIOGRAM: The right coronary artery: Large-caliber vessel and a dominant vessel. The RCA is calcified. The RCA has mild disease only. Gives rises into the PDA branch which appears to be angiographically normal and PLV which has mild to moderate diffuse disease Left main: Calcified was mild disease The left circumflex: Large caliber vessel nondominant vessel and has mild disease only involving the first obtuse marginal branch The left anterior descending artery: Large-caliber vessel. The proximal LAD has mild disease only. The mid LAD is chronically occluded long segment and fills by ipsilateral collateral from a large diagonal branch. HEMODYNAMICS: The LVEDP was only 1 mmHg was no significant gradient across aortic CONCLUSION: 1. Chronic total occlusion of the LAD on long segment in the midportion and the LAD fills by ipsilateral collateral comes from large diagonal branch. 2. Overall calcified right and left coronary system POSTPROCEDURE MANAGEMENT: Giving the above anatomy, giving that the patient is asymptomatic at this point, and giving the length of the lesion and the possible jeopardizing large diagonal branch fills of the LAD, I would advise maximize medical treatment and conservative medical approach including continue aspirin and high intensity statin and lifestyle modification. We'll follow-up with the patient.
[2023-06-09 13:26] VITALS: BP 132/84; PULSE 68; RESP 16
== END ==
LOC: CATHCVL 08:07
PROVIDERS: ATTEND Internal Medicine Interventional Cardiology
DX: I25.10 Atherosclerotic heart disease of native coronary artery without angina pectoris (principal); E78.5 Hyperlipidemia, unspecified; E66.3 Overweight; G47.33 Obstructive sleep apnea (adult) (pediatric); Z79.899 Other long term (current) drug therapy; Z82.49 Family history of ischemic heart disease and other diseases of the circulatory system; Z79.82 Long term (current) use of aspirin
CPT/HCPCS: 93458; 76937; C1769; C1894; J2250; J2001; J3010; J1644; J1170; Q9967

== ENCOUNTER → 2023-09-20 | Outpatient (CLI) | payer MEDICAID ==
[2023-09-20 11:18] LABS: Basophils # (A) 0.04 X 10*3/uL (0.00-0.10); Basophils % (A) 0.6 %; Eosinophils # (A) 0.15 X 10*3/uL (0.04-0.35); Eosinophils % (A) 2.3 %; HCT 43.3 % (39.6-50.0); HGB 14.6 g/dL (13.0-17.0); Lymphocytes # (A) 2.22 X 10*3/uL (0.90-5.00); Lymphocytes % (A) 34.5 %; MCH 30.4 pg (27.0-32.0); MCHC 33.7 g/dL (32.0-37.0); Mean Platelet Volume 9.6 FL (9.5-12.2); Monocytes # (A) 0.44 X 10*3/uL (0.20-1.00); Monocytes % (A) 6.8 %; NRBC Per 100 WBC 0 X 10*3/uL (0.00-0.01); Neutrophils # (A) 3.56 X 10*3/uL (1.80-7.70); Neutrophils % (A) 55.3 %; Platelet Count 316 X 10*3/uL (140-440); RBC 4.81 X 10*6/uL (4.40-5.60); RDW 11.9 % (11.5-14.5); WBC 6.44 X 10*3/uL (4.50-10.00)
[2023-09-20 11:48] LABS: % Iron Saturation 33.53 (15.00-50.00); ALT 33 U/L (10-49); AST 21 U/L (14-35); Albumin 4.6 g/dL (3.8-4.9); Albumin/Globulin Ratio 1.92 Ratio (1.60-3.17); Alkaline Phosphatase 62 U/L (41-126); Blood Urea Nitrogen 15.6 mg/dL (9.0-27.0); Calcium 9.6 mg/dL (8.7-10.3); Carbon Dioxide 27.8 mmol/L (21.6-31.8); Chloride 104 mmol/L (96-109); Chol/HDL Ratio 2.39 Ratio; Creatine Kinase 140 U/L (35-257); Globulin 2.4 g/dL (1.6-3.3); Glucose 103 mg/dL (70-110); Iron 114 UG/DL (65-175); LDL Cholesterol,Calculated 43.1 mg/dL (0.0-131.0); Potassium 4.4 mmol/L (3.5-5.5); Prostate Specific Antigen 0.27 ng/mL (0.000-4.500); Sodium 142 mmol/L (135-145); Total Bilirubin 0.3 mg/dL (0.3-1.2); Total Iron Binding Capacity 340 UG/DL (228-460)
== END | disposition home or self-care (01) ==
LOC: LABWHC1 06:48
PROVIDERS: ATTEND Internal Medicine Geriatric Medicine
DX: Z00.00 Encounter for general adult medical examination without abnormal findings (principal); E78.2 Mixed hyperlipidemia; G47.33 Obstructive sleep apnea (adult) (pediatric); N40.0 Benign prostatic hyperplasia without lower urinary tract symptoms; R73.9 Hyperglycemia, unspecified
CPT/HCPCS: 36415; 80053; 80061; 82550; 83036; 83540; 83550; 84153; 84443; 85025

== ENCOUNTER → 2023-10-17 | Outpatient (CLI) | payer MEDICAID ==
--- NOTE | 2023-10-18 12:05 | CT ---
EXAMINATION TYPE: CT angio neck DATE OF EXAM: 10/17/2023 HISTORY: stenosis COMPARISON: None CT DLP: 377.5 mGycm. Automated Exposure Control for Dose Reduction was Utilized. TECHNIQUE: CTA scan of the neck is performed with IV Contrast, patient injected with 65 mL of Isovue 370, axial images are obtained, coronal and sagittal reformatted images are reviewed. Three-D recons tructed images are created on an independent workstation and reviewed. Source images are reviewed. FINDINGS: Carotid/Vascular Structures: There is a 3 vessel arch. Common carotid arteries bifurcate into internal and external carotid arteries without significant seth w limiting stenosis. Minimal calcifications at the right carotid bifurcation. Tiny microcalcification s at the left carotid bifurcation. Vertebral arteries are codominant. Internal carotid arteries and vertebral arteries are patent to the skull base. IMPRESSION: 1. No flow-limiting stenosis bilateral carotid bifurcations. NASCET criteria was used in interpretation of this exam?
== END | disposition home or self-care (01) ==
LOC: RADCTMAIN 08:00
PROVIDERS: ATTEND Internal Medicine Interventional Cardiology
DX: G45.9 Transient cerebral ischemic attack, unspecified (principal)
CPT/HCPCS: 70498; Q9967

== ENCOUNTER → 2024-09-12 | Outpatient (CLI) | payer MEDICAID ==
[2024-09-12 15:47] VITALS: BP 123/83; PULSE 64; RESP 16; TEMP 97.7
--- NOTE | 2024-09-12 18:09 | P.SLEEP ---
History of Present Illness DATE: 09/12/2024 CONSULTATION/NEW PATIENT EVALUATION HISTORY OF PRESENT ILLNESS/SLEEP-WAKE EVALUATION: 64-year-old gentleman had b een evaluated in the sleep center for obstructive sleep apnea hypopnea syndrome. Patient has history of obstructive sleep apnea hypopnea syndrome for about 8 years diagnosed in our institution. Patient continued to use CPAP equipment, which is old, motor life expectancy was exceeded. SLEEP SCHEDULE: Usually sleep schedule from 9:30 PM to 7 AM. FALLING ASLEEP: Falling asleep. DURING SLEEP: Patient may wake up from sleep with episodes of nocturia. Patient continue grinding teeth, using oral appliances for grinding teeth. No history of hypnogogical hallucinations, sleep paralysis, or cataplexy. DURING THE DAY/WAKE STATE: Revere sleepiness scale is 3. Patient takes nap at 3 PM. PAST MEDICAL HISTORY: Coronary artery disease, hyperlipidemia, acid reflux. PAST SURGICAL HISTORY: Appendectomy, cardiac cath. MEDICATIONS: Have been reviewed, please see below. SOCIAL HISTORY: Please see below. FAMILY HISTORY: Please see below. REVIEW OF SYSTEMS: Awakenings from sleep. No fevers. No double vision. No recent chest pain. No shortness of breath. No abdominal pain. No bleeding episodes. No blood in urine. No seizure episodes. PHYSICAL EXAMINATION: GENERAL: A pleasant patient without any distress. VITAL SIGNS: Please see below, weight 214 pounds, BMI 31.6. HEENT: PERRLA, EOMI. Evaluation of oropharynx showed tongue protrudes midline, low position of soft palate Mallampati 4. NECK: Supple. No JVD. Thyroid is not palpable. 16.5 inches in circumference. LUNGS: Clear to percussion and to auscultation. Good air exchange. No wheezing or rhonchi. HEART: S1, S2 regular. No murmurs, gallops or rubs. ABDOMEN: Soft and nontender. Bowel sounds are present. No organomegaly appreciated. EXTREMITIES: No clubbing or cyanosis. COMMERCIAL ILLUSTRATOR: Awake, alert, and oriented x3. Cranial nerves 2 to 7 intact. There is no fasciculation or atrophy noted. No focal deficits observed. ASSESSMENT: 1. Obstructive sleep apnea hypopnea syndrome for many years. Previous testing was done more than 8 years ago patient continued to use CPAP equipment. CPAP unit is old, motor life expectancy was exceeded. Extremely low position of soft palate Mallampati 4. 2. Coronary artery disease. 3. Hyperlipidemia. 4. Acid reflux. 5. Bruxism. 6 . Status post appendectomy. PLAN: 1. CPAP titration for evaluation of effective CPAP regimen at the present time. 2. Following plan after reading sleep study. Patient should get new CPAP unit. 3. Preferable position during sleep on the side. 4. No driving if patient feels any sleepiness. Patient is aware of civil and criminal liability for unsafe driving. 5. Sleep hygiene with regular sleep time for at least 7.5-8 hours. 6. Watching weight. 7. Thank you very much for allowing me to participate in management of your patien t. Sincerely, Yahir Harden MD, PhD, FAASM. Diplomat of [place] [employer], Sleep Medicine Board by [employer] [employer] [employer] Triage Registered Nurse of [facility] [place] cc: Srini Preston MD Past Medical History Past Medical History: GERD/Reflux, Sleep Apnea/CPAP/BIPAP Additional Past Medical History / Comment(s): USES C PAP MACHINE History of Any Multi-Drug Resistant Organisms: None Reported Past Surgical History: Appendectomy, Tonsillectomy Past Anesthesia/Blood Transfusion Reactions: No Reported Reaction Past Psychological History: No Psychological Hx Reported Smoking Status: Never smoker Past Alcohol Use History: Occasional Past Drug Use History: None Reported - Past Family History Brother(s) Family Medical History: Cancer Additional Family Medical History / Comment(s): BRAIN CANCER Sister(s) Family Medical History: Cancer, Dementia Additional Family Medical History / Comment(s): BREAST CANCER Father Family Medical History: CVA/TIA Mother Family Medical History: Coronary Artery Disease (CAD) Medications and Allergies Home Medications Medication Instructions Recorded Confirmed Type Pantoprazole [Protonix] 40 mg PO DAILY 10/05/18 09/12/24 History Aspirin 81 mg PO DAILY 06/08/23 09/12/24 History Ergocalciferol [Vitamin D2 (1250 1,250 mcg PO Q14D 06/08/23 09/12/24 History Mcg = [id number] Iu)] Rosuvastatin Calcium 5 mg PO DAILY 06/08/23 09/12/24 History Melatonin [Children's Melatonin 1 mg PO DAILY 09/12/24 09/12/24 History Sleep Chew] Allergies Allergy/AdvReac Type Severity Reaction Status Date / Time No Known Allergies Allergy Verified 06/08/23 08:40 Physical Exam Vitals: Vital Signs Temp Pulse Resp BP Pulse Ox 09/12/24 15:47 97.7 F 64 16 123/83 98 Intake and Output 09/12/24 09/12/24 09/12/24 06:59 14:59 22:59 Other: Weight 97.069 kg Sleep Note - Sleep Data ESS Total: 3 - Sleep Note Sleep Note: Temperature: 97.7 F Pulse Rate: 64 Respiratory Rate: 16 Blood Pressure: 123/83 SpO2: 98 Height: 5 ft 9 in Weight: 97.069 kg BMI: Neck Circumference: 16.5
== END ==
LOC: 3 N SLEEP 15:26
PROVIDERS: ATTEND Internal Medicine
DX: G47.33 Obstructive sleep apnea (adult) (pediatric) (principal); I25.10 Atherosclerotic heart disease of native coronary artery without angina pectoris; E78.5 Hyperlipidemia, unspecified; K21.9 Gastro-esophageal reflux disease without esophagitis; G47.63 Sleep related bruxism; Z99.89 Dependence on other enabling machines and devices; Z90.89 Acquired absence of other organs
CPT/HCPCS: 99211

== ENCOUNTER → 2024-10-05 | Outpatient (CLI) | payer MEDICAID ==
--- NOTE | 2024-10-05 13:26 | XR ---
EXAMINATION TYPE: XR chest 2V DATE OF EXAM: 10/05/2024 12:32 PM COMPARISON: 12/25/2018 CLINICAL INDICATION: Male, 64 years old with history of R05.9 COUGH, UNSPECIFIED, , TECHNIQUE: Frontal and lateral views FINDINGS: The cardiomediastinal silhouette, aorta, and pulmonary vasculature are within normal limits. Lungs an d pleural spaces are clear. IMPRESSION: No acute cardiopulmonary process. [facility], , 10/05/2024 1:24 PM
== END | disposition home or self-care (01) ==
LOC: RADXRMAIN 12:18
PROVIDERS: ATTEND Internal Medicine Geriatric Medicine
DX: R05.9 Cough, unspecified (principal)
CPT/HCPCS: 71046

== ENCOUNTER 2024-10-16 19:43 | Outpatient (CLI) | payer MEDICAID ==
--- NOTE | 2024-10-18 12:20 | P.PCN ---
Description of Procedure: CLINICAL: Titration with positive air pressure has been done for correction of respiratory abnormalities during sleep. DESCRIPTION OF PROCEDURE: The standard montage for clinical polysomnography included the electroencephalogram, the electrocardiogram, the mentalis surface electromyography and Lead II cardiography. The respiratory battery consisted of measurements of nasal /buccal air flow, pressure transducer measurements from the nose, thoracic and /or abdominal effort and intercostal surface electromyography. Video monitoring has been done to check for any parasomnia events. Nocturnal oxyhemoglobin saturations were obtained by finger oximetry. Step-solano titration with positive airway pressure was utilized to control respiratory events. Raw data of sleep recording has been reviewed and is adequate. RESULTS: Sleep efficiency was slightly decreased to 85.7%. Latency to sleep onset was normal at 13.0 minutes.]. Sleep architecture showed stage N1 was normal 7.7%, Delta sleep was slightly short 4.6%, REM sleep was normal in high range 28.8%. Heart rate was minimum 59 BPM, maximum 66 BPM, average 62 BPM. EMG showed 6.8 periodic limb movements per hour with 0.5 micriarousals per hour. PAP titration have been done with CPAP up to the pressure 8 cm H2O. The best results were at the pressure 8 cm H2O. Apnea hypopnea index reduced to 0.9. IMPRESSION: 1. Obstructive sleep apnea hypopnea syndrome on controle with PAP treatment. 2. No significant periodic limb movements have been documented. Please see other impressions from consultation. PLAN: 1. The patient will have treatment with positive air pressure equipment with the level of pressure 5-10 cm H2O and should use it every night for the whole night. 2. Watching weight. 3. Sleep hygiene with regular time in bed for at least 8 hours. 4. No driving if feeling any sleepiness. 5. I will see the patient for follow up visit to explain the results of the test, recommendations, check compliance with treatment and make any necessary adjustment related to mask fitting, pressure and humidification. Thank you very much for allowing me to participate in the management of your patient. Sincerely, Yahir Harden MD, PhD, FAASM Diplomat of [employer] [employer] Sleep Medicine Board of [place] [employer] W[employer] Developer of [facility] [place] cc: Srini Preston MD
== END 2024-10-17 05:30 | disposition home or self-care (01) ==
LOC: 3 N SLEEP 19:43
PROVIDERS: ATTEND Internal Medicine
DX: G47.33 Obstructive sleep apnea (adult) (pediatric) (principal); Z99.89 Dependence on other enabling machines and devices
CPT/HCPCS: 95811